=== PATIENT | male | born 1940 | race Caucasian/White ===

== ENCOUNTER 2022-07-08 11:32 | Outpatient (CLI) | payer MEDICARE ==
[2022-07-08 13:19] LABS: #Basophils 0.1 10x3/uL (0.0-0.2); #Eosinphils 0.2 10x3/uL (0.0-0.5); #Monocytes 0.6 10x3/uL (0.0-1.1); #Neutrophils 5.8 10x3/uL (1.5-8.4); %Basophils 0.6 % (0.0-2.0); %Lymphocytes 22.9 % (18.0-47.0); %Monocytes 6.5 % (0.0-10.0); %Neutrophils 67.7 % (40.0-75.0); Hemoglobin 14.2 g/dL (13.5-17.5); Mean Corpuscular HGB CONC 32.5 g/dL (32.0-36.0); Mean Corpuscular Hemoglobin 27.2 pg (27.0-33.0); Mean Corpuscular Volume 83.6 fl (81.2-95.1); Mean Platelet Volume 13.9 fl (7.4-10.4); Platelet Count 165 10x3/uL (150-450); RBC Distribution Width 13.3 % (11.5-14.5); Red Blood Cell (RBC) Count 5.23 10x6/uL (4.32-5.72); White Blood Cell (WBC) Count 8.6 10x3/uL (3.5-10.5)
[2022-07-08 13:45] LABS: ALT (SGPT) 19 U/L (8-55); AST (SGOT) 26 U/L (5-34); Albumin 4.5 g/dL (3.4-4.8); Alkaline Phosphatase 71 U/L (40-110); Anion Gap 15 mmol/L (10-20); BUN (Urea Nitrogen) 13 mg/dL (8.4-25.7); Bilirubin, Total 0.8 mg/dL (0.2-1.2); Calc. Creatinine Clearance 0 mL/min (70-130); Calcium 9.7 mg/dL (7.8-10.44); Carbon Dioxide 30 mmol/L (23-31); Chloride 101 mmol/L (98-107); Estimated GFR 52; Globulin 2.8 g/dL (2.4-3.5); Glucose 98 mg/dL (83-110); Potassium 3.8 mmol/L (3.5-5.1); Protein, Total 7.3 g/dL (5.8-8.1); Sodium 142 mmol/L (136-145)
== END 2022-07-08 11:33 | disposition home or self-care (01) ==
LOC: LABBT 11:32
PROVIDERS: ATTEND Internal Medicine Cardiovascular Disease
DX: U07.1 COVID-19 (principal); Z01.818 Encounter for other preprocedural examination
CPT/HCPCS: 80053; 85025; 87811; 93005; 93010

== ENCOUNTER 2022-08-12 09:25 | Outpatient (CLI) | payer MEDICARE ==
[2022-08-12 11:12] LABS: Hemoglobin 13.1 g/dL (13.5-17.5); Mean Corpuscular HGB CONC 32.6 g/dL (32.0-36.0); Mean Corpuscular Volume 85.9 fl (81.2-95.1); Mean Platelet Volume 13.8 fl (7.4-10.4); Platelet Count 167 10x3/uL (150-450); RBC Distribution Width 13.4 % (11.5-14.5); Red Blood Cell (RBC) Count 4.68 10x6/uL (4.32-5.72); White Blood Cell (WBC) Count 9.3 10x3/uL (3.5-10.5)
[2022-08-12 11:21] LABS: ALT (SGPT) 20 U/L (8-55); AST (SGOT) 23 U/L (5-34); Albumin 4.1 g/dL (3.4-4.8); Alkaline Phosphatase 68 U/L (40-110); Anion Gap 16 mmol/L (10-20); BUN (Urea Nitrogen) 17 mg/dL (8.4-25.7); Bilirubin, Total 0.5 mg/dL (0.2-1.2); Calc. Creatinine Clearance 0 mL/min (70-130); Calcium 8.9 mg/dL (7.8-10.44); Carbon Dioxide 28 mmol/L (23-31); Cardiac Risk 3.5 (Less than 4.5); Chloride 101 mmol/L (98-107); Cholesterol 112 mg/dl (< 200 Desired); Estimated GFR 39; Globulin 2.6 g/dL (2.4-3.5); Glucose 175 mg/dL (83-110); HDL Cholesterol 32 mg/dL (>60 Neg Risk); LDL Cholesterol, Calculated 44 mg/dL; Potassium 4.2 mmol/L (3.5-5.1); Protein, Total 6.7 g/dL (5.8-8.1); Sodium 141 mmol/L (136-145); Triglycerides 178 mg/dL (Less than 150)
== END 2022-08-12 09:26 | disposition home or self-care (01) ==
LOC: LABBT 09:25
PROVIDERS: ATTEND Internal Medicine Cardiovascular Disease
DX: Z01.812 Encounter for preprocedural laboratory examination (principal); R94.39 Abnormal result of other cardiovascular function study
CPT/HCPCS: 80053; 80061; 85027

== ENCOUNTER 2023-01-09 02:43 | Inpatient (IN) | payer MEDICARE ==
[2023-01-09 02:45] VITALS: BMI 30.7
[2023-01-09] MEDS ORDERED: Acetaminophen 325 MG TAB PO PRN (03:02)
[2023-01-09] MEDS ORDERED: Nitroglycerin 0.4 MG TAB (25 Tab Bottle) SL PRN (03:02)
[2023-01-09] MEDS ORDERED: Ondansetron ODT 4 MG TAB PO PRN (03:02)
[2023-01-09] MEDS ORDERED: Senokot S 8.6-50 MG TAB PO PRN (03:02)
[2023-01-09] MEDS ORDERED: Dextrose 5% in Water 1,000 ML IV PRN (03:09)
[2023-01-09] MEDS ORDERED: Dextrose 50% Abboject 50 ML SYRINGE SLOW IVP PRN (03:09)
[2023-01-09] MEDS: Heparin 25,000 units/D5W 500 ML IVPB SCH (04:09)
[2023-01-09] MEDS: Heparin 10,000 UNITS/ 10 ML VIAL SLOW IVP SCH ×2 (04:09→20:32)
[2023-01-09 04:56] LABS: #Eosinphils 0.4 thou/uL (0.0-0.7); #Lymphocytes 2.2 thou/uL (1.20-3.40); #Monocytes 0.8 thou/uL (0.11-0.59); #Neutrophils 6.8 thou/uL (1.40-6.50); %Basophils 0.1 % (0.0-1.0); %Eosinophils 3.7 % (0.0-10.0); %Lymphocytes 21.5 % (21.0-51.0); %Monocytes 7.6 % (0.0-10.0); %Neutrophils 67.2 % (42.0-75.0); Hemoglobin 12.3 g/dL (14.0-18.0); Mean Corpuscular HGB CONC 32.4 g/dL (32.0-36.0); Mean Corpuscular Hemoglobin 29.1 pg (27.0-31.0); Mean Corpuscular Volume 89.8 fl (78.0-98.0); Mean Platelet Volume 11.8 fL (7.4-10.4); Platelet Count 120 10x3/uL (130-400); RBC Distribution Width 12.5 % (11.5-14.5); Red Blood Cell (RBC) Count 4.22 mill/uL (4.70-6.10); White Blood Cell (WBC) Count 10.1 10x3/uL (4.8-10.8)
[2023-01-09 05:20] LABS: Anion Gap 15 mmol/L (10-20); BUN (Urea Nitrogen) 20 mg/dL (8.4-25.7); Calc. Creatinine Clearance 44 mL/min (70-130); Calcium 9.2 mg/dL (7.8-10.44); Carbon Dioxide 24 mmol/L (23-31); Chloride 105 mmol/L (98-107); Estimated GFR 36; Glucose 69 mg/dL (83-110); Sodium 140 mmol/L (136-145)
[2023-01-09 05:31] LABS: Troponin I 0.392 ng/mL (< 0.028)
[2023-01-09] MEDS: Carvedilol 25 MG TAB PO SCH ×2 (08:41→22:10)
[2023-01-09] MEDS: Famotidine 20 MG TAB PO SCH (08:41)
[2023-01-09] MEDS: Pregabalin 75 MG CAP PO SCH ×3 (08:42→22:10)
[2023-01-09] MEDS: Aspirin Chewable 81 MG TAB PO SCH (08:42)
[2023-01-09] MEDS: Dorzolamide HCl 2% Ophth Soln 10 ml Bottle EA EYE SCH (08:43)
[2023-01-09] MEDS ORDERED: metFORMIN 500 MG TAB PO SCH (09:00)
[2023-01-09 09:08] LABS: Troponin I 0.397 ng/mL (< 0.028)
[2023-01-09] MEDS: Atorvastatin Calcium 10 MG TAB PO SCH (15:43)
[2023-01-09] MEDS: Latanoprost 0.005% Ophth Soln 2.5 ml Bottle EA EYE SCH (22:10)
[2023-01-10] MEDS: Heparin 25,000 units/D5W 500 ML IVPB SCH (01:08)
[2023-01-10 04:53] LABS: #Eosinphils 0.3 thou/uL (0.0-0.7); #Lymphocytes 1.3 thou/uL (1.20-3.40); #Monocytes 0.4 thou/uL (0.11-0.59); #Neutrophils 4.4 thou/uL (1.40-6.50); %Basophils 0.7 % (0.0-1.0); %Eosinophils 3.9 % (0.0-10.0); %Lymphocytes 20.1 % (21.0-51.0); %Monocytes 5.7 % (0.0-10.0); %Neutrophils 69.6 % (42.0-75.0); Mean Corpuscular HGB CONC 33.3 g/dL (32.0-36.0); Mean Corpuscular Hemoglobin 29.8 pg (27.0-31.0); Mean Corpuscular Volume 89.3 fl (78.0-98.0); Mean Platelet Volume 11.8 fL (7.4-10.4); Platelet Count 103 10x3/uL (130-400); RBC Distribution Width 12.5 % (11.5-14.5); Red Blood Cell (RBC) Count 4.05 mill/uL (4.70-6.10); White Blood Cell (WBC) Count 6.4 10x3/uL (4.8-10.8)
[2023-01-10 04:54] LABS: PTT 141.2 sec (22.9-36.1)
[2023-01-10 05:05] LABS: Anion Gap 14 mmol/L (10-20); BUN (Urea Nitrogen) 14 mg/dL (8.4-25.7); Calc. Creatinine Clearance 55 mL/min (70-130); Calcium 8.8 mg/dL (7.8-10.44); Carbon Dioxide 21 mmol/L (23-31); Chloride 107 mmol/L (98-107); Estimated GFR 46; Glucose 100 mg/dL (83-110); Potassium 3.6 mmol/L (3.5-5.1); Sodium 138 mmol/L (136-145)
[2023-01-10] MEDS: Famotidine 20 MG TAB PO SCH (09:35)
[2023-01-10] MEDS: Aspirin Chewable 81 MG TAB PO SCH (09:36)
[2023-01-10] MEDS: Carvedilol 25 MG TAB PO SCH ×2 (09:36→20:37)
[2023-01-10] MEDS: Pregabalin 75 MG CAP PO SCH ×2 (09:36→20:37)
[2023-01-10] MEDS: Dorzolamide HCl 2% Ophth Soln 10 ml Bottle EA EYE SCH (09:43)
[2023-01-10] MEDS ORDERED: Diphenoxylate HCl/Atropine Tablet PO PRN (14:20)
[2023-01-10] MEDS: Atorvastatin Calcium 10 MG TAB PO SCH (16:52)
[2023-01-10] MEDS: Latanoprost 0.005% Ophth Soln 2.5 ml Bottle EA EYE SCH (20:37)
[2023-01-10] MEDS: Sacubitril 24MG/Valsartan 26 MG TAB PO SCH (20:38)
[2023-01-11] MEDS ORDERED: Melatonin 3 MG TAB PO PRN (01:01)
[2023-01-11 05:30] LABS: #Basophils 0.1 thou/uL (0.0-0.2); #Eosinphils 0.1 thou/uL (0.0-0.7); #Lymphocytes 0.5 thou/uL (1.20-3.40); #Monocytes 0.5 thou/uL (0.11-0.59); %Basophils 1.2 % (0.0-1.0); %Eosinophils 1.4 % (0.0-10.0); %Lymphocytes 6.9 % (21.0-51.0); %Monocytes 6.6 % (0.0-10.0); Hemoglobin 12.4 g/dL (14.0-18.0); Mean Corpuscular HGB CONC 34.4 g/dL (32.0-36.0); Mean Corpuscular Hemoglobin 30.1 pg (27.0-31.0); Mean Corpuscular Volume 87.6 fl (78.0-98.0); Mean Platelet Volume 11.6 fL (7.4-10.4); Platelet Count 114 10x3/uL (130-400); RBC Distribution Width 12.3 % (11.5-14.5); Red Blood Cell (RBC) Count 4.14 mill/uL (4.70-6.10); White Blood Cell (WBC) Count 7.1 10x3/uL (4.8-10.8)
[2023-01-11 05:33] LABS: Phosphorus 2.5 mg/dL (2.3-4.7)
[2023-01-11 05:35] LABS: Anion Gap 15 mmol/L (10-20); BUN (Urea Nitrogen) 12 mg/dL (8.4-25.7); Calc. Creatinine Clearance 56 mL/min (70-130); Calcium 9.2 mg/dL (7.8-10.44); Carbon Dioxide 18 mmol/L (23-31); Chloride 110 mmol/L (98-107); Estimated GFR 48; Glucose 196 mg/dL (83-110); Sodium 139 mmol/L (136-145)
[2023-01-11] MEDS: Levothyroxine Sodium 50 MCG TAB PO SCH (06:11)
[2023-01-11] MEDS: Aspirin Chewable 81 MG TAB PO SCH (10:49)
[2023-01-11] MEDS: Carvedilol 25 MG TAB PO SCH ×2 (10:49→20:05)
[2023-01-11] MEDS: Famotidine 20 MG TAB PO SCH (10:49)
[2023-01-11] MEDS: Fish Oil 1,000 MG CAP PO SCH (10:49)
[2023-01-11] MEDS: Pregabalin 75 MG CAP PO SCH ×2 (10:50→20:06)
[2023-01-11] MEDS: Sacubitril 24MG/Valsartan 26 MG TAB PO SCH ×2 (10:50→20:06)
[2023-01-11] MEDS: HumaLOG 300 UNITS/3 ML VIAL SC PRN (10:51)
[2023-01-11] MEDS: Dorzolamide HCl 2% Ophth Soln 10 ml Bottle EA EYE SCH (10:51)
[2023-01-11] MEDS: Atorvastatin Calcium 10 MG TAB PO SCH (12:23)
[2023-01-11] MEDS: methylPREDNISolone Sod Succ 40 MG VIAL IVP SCH ×2 (12:25→21:18)
[2023-01-11] MEDS: Cefepime 1 GM in Sodium Chloride 0.9% 100 ML IVPB SCH (12:28)
[2023-01-11] MEDS: Albuterol 200 PUFF (6.7GM INHALER) INH SCH ×2 (14:11→19:18)
[2023-01-11] MEDS ORDERED: Electrolyte Replacement Protocol FS SCH (16:15)
[2023-01-11] MEDS ORDERED: Furosemide 40 MG/4 ML VIAL SLOW IVP SCH (16:15)
[2023-01-11] MEDS ORDERED: Magnesium 2 GM/50 ML(in water) 2 GM in Premix Bag 1 BAG IVPB SCH (16:30)
[2023-01-11] MEDS ORDERED: Dexmedetomidine In 0.9 % NaCl 100 ML IVPB SCH (16:30)
[2023-01-11 16:36] LABS: Actual Bicarbonate (HCO3v) 18 mEq/L (22-28); Base Excess -7.1 mEq/L (-2.0 to +3.0); Calcium, Ionized (venous) 1.17 mmol/L (1.16-1.32); Chloride (VBG) 107 mmol/L (98-106); Hemoglobin (Hb) 13.9 g/dL (12.6-17.4); Potassium (VBG) 4.32 mmol/L (3.70-5.30); Sodium 141.3 mmol/L (133-146); pH (venous) 7.34 (7.32-7.43)
[2023-01-11] MEDS: Latanoprost 0.005% Ophth Soln 2.5 ml Bottle EA EYE SCH (20:05)
[2023-01-11] MEDS: Heparin 5,000 UNITS/ML VIAL SC SCH (20:06)
[2023-01-12] MEDS: hydrALAZINE 20 MG/ML VIAL SLOW IVP PRN ×3 (03:47→18:41)
[2023-01-12 04:45] LABS: #Lymphocytes 0.7 thou/uL (1.20-3.40); #Monocytes 0.2 thou/uL (0.11-0.59); #Neutrophils 6.7 thou/uL (1.40-6.50); %Basophils 0.4 % (0.0-1.0); %Eosinophils 0.2 % (0.0-10.0); %Lymphocytes 9.1 % (21.0-51.0); %Monocytes 2.5 % (0.0-10.0); %Neutrophils 87.8 % (42.0-75.0); Mean Corpuscular HGB CONC 33.8 g/dL (32.0-36.0); Mean Corpuscular Hemoglobin 29.6 pg (27.0-31.0); Mean Corpuscular Volume 87.8 fl (78.0-98.0); Mean Platelet Volume 12.4 fL (7.4-10.4); Platelet Count 114 10x3/uL (130-400); RBC Distribution Width 12.4 % (11.5-14.5); White Blood Cell (WBC) Count 7.6 10x3/uL (4.8-10.8)
[2023-01-12 05:07] LABS: Anion Gap 24 mmol/L (10-20); BUN (Urea Nitrogen) 21 mg/dL (8.4-25.7); Calc. Creatinine Clearance 47 mL/min (70-130); Calcium 9.1 mg/dL (7.8-10.44); Carbon Dioxide 12 mmol/L (23-31); Chloride 110 mmol/L (98-107); Estimated GFR 39; Glucose 333 mg/dL (83-110); Magnesium 2.1 mg/dL (1.6-2.6); Potassium 4.4 mmol/L (3.5-5.1); Sodium 142 mmol/L (136-145)
[2023-01-12] MEDS: HumaLOG 300 UNITS/3 ML VIAL SC PRN ×3 (05:26→18:47)
[2023-01-12] MEDS: methylPREDNISolone Sod Succ 40 MG VIAL IVP SCH ×2 (05:26→18:41)
[2023-01-12] MEDS: Levothyroxine Sodium 50 MCG TAB PO SCH (05:27)
[2023-01-12] MEDS: Albuterol 200 PUFF (6.7GM INHALER) INH SCH ×3 (07:23→18:37)
[2023-01-12] MEDS: Heparin 5,000 UNITS/ML VIAL SC SCH ×2 (08:48→20:17)
[2023-01-12] MEDS ORDERED: Haloperidol Lactate 5 MG/ML VIAL SLOW IVP PRN (10:40)
[2023-01-12] MEDS ORDERED: Labetalol HCl 100 MG/20 ML VIAL SLOW IVP PRN (10:43)
[2023-01-12] MEDS: Aspirin Chewable 81 MG TAB PO SCH (10:51)
[2023-01-12] MEDS: Fish Oil 1,000 MG CAP PO SCH (10:51)
[2023-01-12] MEDS: Dorzolamide HCl 2% Ophth Soln 10 ml Bottle EA EYE SCH (10:51)
[2023-01-12] MEDS: Famotidine 20 MG TAB PO SCH (10:51)
[2023-01-12] MEDS: Carvedilol 25 MG TAB PO SCH ×2 (10:51→20:17)
[2023-01-12] MEDS: Lactated Ringer's 1,000 ML IV SCH (12:21)
[2023-01-12] MEDS: Cefepime 1 GM in Sodium Chloride 0.9% 100 ML IVPB SCH ×2 (12:22)
[2023-01-12] MEDS: Atorvastatin Calcium 10 MG TAB PO SCH (15:09)
[2023-01-12] MEDS: Latanoprost 0.005% Ophth Soln 2.5 ml Bottle EA EYE SCH (20:18)
[2023-01-13] MEDS: Cefepime 1 GM in Sodium Chloride 0.9% 100 ML IVPB SCH (00:28)
[2023-01-13 04:14] LABS: #Lymphocytes 0.7 thou/uL (1.20-3.40); #Monocytes 0.6 thou/uL (0.11-0.59); #Neutrophils 12.1 thou/uL (1.40-6.50); %Basophils 0.1 % (0.0-1.0); %Eosinophils 0.2 % (0.0-10.0); %Lymphocytes 5.1 % (21.0-51.0); %Monocytes 4.5 % (0.0-10.0); %Neutrophils 90.2 % (42.0-75.0); Hemoglobin 14.5 g/dL (14.0-18.0); Mean Corpuscular HGB CONC 32.3 g/dL (32.0-36.0); Mean Corpuscular Hemoglobin 28.7 pg (27.0-31.0); Mean Platelet Volume 11.2 fL (7.4-10.4); Platelet Count 167 10x3/uL (130-400); Red Blood Cell (RBC) Count 5.05 mill/uL (4.70-6.10); White Blood Cell (WBC) Count 13.4 10x3/uL (4.8-10.8)
[2023-01-13 04:34] LABS: Anion Gap 22 mmol/L (10-20); BUN (Urea Nitrogen) 32 mg/dL (8.4-25.7); Calc. Creatinine Clearance 47 mL/min (70-130); Calcium 9.4 mg/dL (7.8-10.44); Carbon Dioxide 14 mmol/L (23-31); Chloride 115 mmol/L (98-107); Estimated GFR 38; Glucose 307 mg/dL (83-110); Potassium 4.7 mmol/L (3.5-5.1); Sodium 146 mmol/L (136-145)
[2023-01-13] MEDS: HumaLOG 300 UNITS/3 ML VIAL SC PRN (04:50)
[2023-01-13] MEDS: Levothyroxine Sodium 50 MCG TAB PO SCH (04:57)
[2023-01-13] MEDS: methylPREDNISolone Sod Succ 40 MG VIAL IVP SCH (05:01)
[2023-01-13] MEDS: Lactated Ringer's 1,000 ML IV SCH (06:50)
[2023-01-13] MEDS: Albuterol 200 PUFF (6.7GM INHALER) INH SCH (07:31)
[2023-01-13] MEDS: Heparin 5,000 UNITS/ML VIAL SC SCH (07:55)
[2023-01-13] MEDS: hydrALAZINE 20 MG/ML VIAL SLOW IVP PRN (07:56)
[2023-01-13 08:16] VITALS: BP 182/97
[2023-01-13] MEDS: Fish Oil 1,000 MG CAP PO SCH (08:17)
[2023-01-13] MEDS: Famotidine 20 MG TAB PO SCH (08:17)
[2023-01-13] MEDS: Carvedilol 25 MG TAB PO SCH (08:17)
[2023-01-13] MEDS: Aspirin Chewable 81 MG TAB PO SCH (08:17)
[2023-01-13 08:20] VITALS: TEMP 97
[2023-01-13] MEDS ORDERED: Dextrose 5%-Lactated Ringers 1,000 ML IV SCH (08:30)
[2023-01-13] MEDS ORDERED: HumaLOG 300 UNITS/3 ML VIAL SC PRN (08:31)
[2023-01-13] MEDS ORDERED: Dextrose 5 %-0.45 % NaCl 1,000 ML IV SCH (08:45)
[2023-01-13] MEDS ORDERED: Insulin Glargine 30 UNITS/0.3 ML VIAL SC SCH ×2 (09:00)
[2023-01-13] MEDS: Dorzolamide HCl 2% Ophth Soln 10 ml Bottle EA EYE SCH (11:25)
== END 2023-01-13 13:53 | disposition hospice, inpatient (51) | DRG 177 ==
LOC: 2NO 02:43 → OBSVTOIN 15:02 → CCU 01-11 11:45
PROVIDERS: ADMIT Internal Medicine; ATTEND Internal Medicine
DX: J69.0 Pneumonitis due to inhalation of food and vomit (principal); G93.41 Metabolic encephalopathy; I21.A1 Myocardial infarction type 2; Z66 Do not resuscitate; Z51.5 Encounter for palliative care; J96.01 Acute respiratory failure with hypoxia; N17.9 Acute kidney failure, unspecified; F05 Delirium due to known physiological condition; J81.1 Chronic pulmonary edema; J90 Pleural effusion, not elsewhere classified; E87.1 Hypo-osmolality and hyponatremia; I25.10 Atherosclerotic heart disease of native coronary artery without angina pectoris; E11.22 Type 2 diabetes mellitus with diabetic chronic kidney disease; I12.9 Hypertensive chronic kidney disease with stage 1 through stage 4 chronic kidney disease, or unspecified chronic kidney disease; N18.30 Chronic kidney disease, stage 3 unspecified; E11.65 Type 2 diabetes mellitus with hyperglycemia; Z78.1 Physical restraint status; Z88.0 Allergy status to penicillin; Z88.2 Allergy status to sulfonamides; Z79.899 Other long term (current) drug therapy; Z79.82 Long term (current) use of aspirin; Z95.1 Presence of aortocoronary bypass graft; Z95.5 Presence of coronary angioplasty implant and graft; Z79.4 Long term (current) use of insulin; Z79.84 Long term (current) use of oral hypoglycemic drugs
CPT/HCPCS: 36415; 36416; 70450; 71045; 80048; 80053; 81003; 81015; 82553; 82805; 83605; 83735; 83880; 84100; 84145; 84484; 85025; 85610; 85730; 93005; 93306; 94660; 94760; 96374; G0378; J0360; J0692; J1630; J1644; J1815; J1940; J2920; J3475; J3490; J7042; J7120

== ENCOUNTER 2023-01-13 14:07 | Inpatient (IN) | payer OTHER ==
[2023-01-13] MEDS ORDERED: Morphine 2 MG/ML VIAL SLOW IVP PRN (14:55)
[2023-01-13] MEDS ORDERED: Lorazepam 2 MG/ML VIAL SLOW IVP PRN (14:56)
[2023-01-13] MEDS ORDERED: Scopolamine 1.5 mg/72 hour Patch TOP SCH (15:00)
[2023-01-13] MEDS: Morphine 4 MG/ML VIAL SLOW IVP PRN ×3 (17:38→23:35)
[2023-01-13] MEDS: Lorazepam 2 MG/ML VIAL SLOW IVP PRN ×3 (17:40→23:35)
[2023-01-14] MEDS: Lorazepam 2 MG/ML VIAL SLOW IVP PRN (06:17)
[2023-01-14] MEDS: Morphine 4 MG/ML VIAL SLOW IVP PRN (16:16)
[2023-01-14] MEDS: Morphine 4 MG/ML VIAL SLOW IVP SCH ×3 (18:26→22:22)
[2023-01-15] MEDS: Morphine 4 MG/ML VIAL SLOW IVP SCH ×8 (00:18→14:03)
[2023-01-15 09:58] VITALS: TEMP 96.5
[2023-01-15 10:02] VITALS: BP 76/53
== END 2023-01-15 15:12 | disposition expired | DRG 951 ==
LOC: CCU 14:07
PROVIDERS: ADMIT Student in an Organized Health Care Education/Training Program; ATTEND Student in an Organized Health Care Education/Training Program
DX: Z51.5 Encounter for palliative care (principal); I21.A1 Myocardial infarction type 2; N17.9 Acute kidney failure, unspecified; N18.30 Chronic kidney disease, stage 3 unspecified; I25.10 Atherosclerotic heart disease of native coronary artery without angina pectoris; E11.9 Type 2 diabetes mellitus without complications; I10 Essential (primary) hypertension; Z95.1 Presence of aortocoronary bypass graft; Z79.899 Other long term (current) drug therapy; Z79.82 Long term (current) use of aspirin; Z79.84 Long term (current) use of oral hypoglycemic drugs; Z95.5 Presence of coronary angioplasty implant and graft; Z88.0 Allergy status to penicillin; Z88.2 Allergy status to sulfonamides
CPT/HCPCS: J2060; J2270; J2272